=== PATIENT | male | born 1995 | race Two or more races ===

== ENCOUNTER 2018-03-22 01:45 | Emergency (ER) | payer MEDICAID, OTHER ==
[~2018-03-22] VITALS: Ht 167.6 cm; Wt 70.0 kg
[2018-03-22 02:50] VITALS: BP 126/74
== END 2018-03-22 03:01 | disposition home or self-care (01) ==
LOC: ED 02:58
DX: K59.00 Constipation, unspecified (principal)
CPT/HCPCS: 74022; 99284